=== PATIENT | female | born 1980 | race Caucasian/White ===

== ENCOUNTER 2016-09-10 15:10 | Emergency (ER) | payer SELFPAY ==
[~2016-09-10] VITALS: Ht 157.5 cm; Wt 149.7 kg
[2016-09-10 15:17] VITALS: BP 200/90
[2016-09-10] MEDS ORDERED: magic mouthwash PO (15:34)
[2016-09-10] MEDS ORDERED: CLIN300C8 PO (15:34)
--- NOTE | 2016-09-10 15:34 | PHYS DOC ---
Adult General Chief Complaint Chief Complaint: DENTAL PROBLEM HPI HPI Patient is a 35 year old female presents to the emergency department with oral pain. Patient reports Wednesday she began to have some burning to the area of the soft palate in the mouth. She states that she had a dentist appointment, routine cleaning, on Wednesday. She states that today she return to the dentist because the pain increased and seemed to be increasing the sores in her mouth. Patient states that her dentist was unsure of what it wasn't center to the emergency department. The patient has no difficulty with swallowing or phonation. She does not recall any changes in her daily routine or diet. The patient does report that 2 days prior to the onset of the sores in her mouth she had purchased a new toothbrush. She reports that the sores are now on the mucous membranes and the inside of her lips. Review of Systems Review of Systems Constitutional: Denies fever or chills [] Eyes: Denies change in visual acuity, redness, or eye pain [] HENT: Denies nasal congestion or sore throat, mouth pain [] Respiratory: Denies cough or shortness of breath [] Cardiovascular: No additional information not addressed in HPI [] GI: Denies abdominal pain, nausea, vomiting, bloody stools or diarrhea [] : Denies dysuria or hematuria [] Musculoskeletal: Denies back pain or joint pain [] Integument: Denies rash or skin lesions [] Neurologic: Denies headache, focal weakness or sensory changes [] Endocrine: Denies polyuria or polydipsia [] Physical Exam Physical Exam Constitutional: Well developed, well nourished, no acute distress, non-toxic appearance. [] HENT: Normocephalic, atraumatic, bilateral external ears normal, oropharynx with erythema on the right buccal mucosa, left buccal mucosa with erythematous base vesicular lesions. Soft palate erythematous with erythematous base vesicular lesions. Mucosal aspect of the upper and lower lip erythematous with sloughing vesicular lesions. Neck: Normal range of motion, no tenderness, supple, anterior cervical lymphadenopathy Cardiovascular:Heart rate regular rhythm, no murmur [] Lungs & Thorax: Bilateral breath sounds clear to auscultation [] Skin: Warm, dry, no erythema, no rash. [] Back: No tenderness, no CVA tenderness. [] Extremities: No tenderness, no cyanosis, no clubbing, ROM intact, no edema. [] EKG EKG [] Radiology/Procedures Radiology/Procedures [] Course & Med Decision Making Course & Med Decision Making Pertinent Labs and Imaging studies reviewed. (See chart for details) [] Dragon Disclaimer Dragon Disclaimer This electronic medical record was generated, in whole or in part, using a voice recognition dictation system. Departure Departure Impression: Primary Impression: Stomatitis and mucositis Disposition: HOME, SELF-CARE Condition: STABLE Patient Instructions: Stomatitis Additional Instructions: Magic mouthwash swish and spit 1 teaspoon every 2 hours as needed for comfort. Salt water swish and spit after meals and before bed. Follow-up with your dentist in 2-3 days. Scripts [magic mouthwash] No Conflict Check 5 ML PO gargle and spit Y for mouth pain, #120 ML Prov: ZHAO ARAUZ APRN 09/10/16 Clindamycin Hcl (CLINDAMYCIN HCL) 300 Mg Capsule 1 CAP PO TID, #21 CAP Prov: ZHAO ARAUZ APRN 09/10/16 ZHAO ARAUZ APRN Sep 10, 2016 15:34
== END 2016-09-10 15:45 | disposition home or self-care (01) ==
LOC: ER 15:10
DX: K12.1 Other forms of stomatitis (principal); K12.30 Oral mucositis (ulcerative), unspecified
CPT/HCPCS: 99283

== ENCOUNTER 2017-04-30 19:16 | Emergency (ER) | payer SELFPAY ==
[2017-04-30 20:02] LABS: URINE HCG POC HCG NEGATIVE (Negative)
[2017-04-30 20:12] LABS: BILIRUBIN,URINE NEGATIVE (NEG); CLARITY,URINE CLOUDY; COLOR,URINE YELLOW; GLUCOSE,URINE NEGATIVE (NEG); NITRITE,URINE NEGATIVE (NEG); PROTEIN,URINE NEGATIVE (NEG-TRACE)
[2017-04-30] MEDS: cloNIDine HCL 0.1 MG TABLET PO (20:20)
[2017-04-30 20:26] LABS: BACTERIA,URINE MODERATE /HPF (0-FEW); RBC,URINE 0 /HPF (0-2); SQUAMOUS EPITHELIAL CELL,UR MOD /LPF; WBC,URINE OCC /HPF (0-4)
[2017-04-30 20:58] LABS: ADD MAN DIFF? NO
[2017-04-30 21:07] LABS: BASO # 0.1 x10^3/uL (0.0-0.2); BASO % 0 % (0-3); EOS # 0.2 x10^3/uL (0.0-0.7); EOS % 1 % (0-3); HEMATOCRIT 37.9 % (36.0-47.0); HEMOGLOBIN 12.9 g/dL (12.0-15.5); LYMPH # 5.9 x10^3/uL (1.0-4.8); LYMPH % 44 % (24-48); MEAN CORPUSCULAR HEMOGLOBIN 30 pg (25-35); MEAN CORPUSCULAR HGB CONC 34 g/dL (31-37); MEAN CORPUSCULAR VOLUME 88 fL (79-100); MONO # 0.6 x10^3/uL (0.0-1.1); MONO % 5 % (0-9); NEUT # 6.6 x10^3uL (1.8-7.7); NEUT % 49 % (31-73); PLATELET COUNT 198 x10^3/uL (140-400); RED BLOOD COUNT 4.31 x10^6/uL (3.50-5.40); RED CELL DISTRIBUTION WIDTH 13.4 % (11.5-14.5); WHITE BLOOD COUNT 13.4 x10^3/uL (4.0-11.0)
[2017-04-30 21:18] LABS: ANION GAP 6 (6-14); BLOOD UREA NITROGEN 17 mg/dL (7-20); BUN/CREATININE RATIO 19 (6-20); CALCIUM 8.4 mg/dL (8.5-10.1); CARBON DIOXIDE 29 mmol/L (21-32); CHLORIDE 105 mmol/L (98-107); CREATININE 0.9 mg/dL (0.6-1.0); GFR 70.1; GLUCOSE 110 mg/dL (70-99); POTASSIUM 3.5 mmol/L (3.5-5.1); SODIUM 140 mmol/L (136-145)
[2017-04-30 21:24] LABS: ALBUMIN 3.3 g/dL (3.4-5.0); ALK PHOS 56 U/L (46-116); ALT (SGPT) 20 U/L (14-59); AST (SGOT) 14 U/L (15-37); TOTAL BILIRUBIN 0.4 mg/dL (0.2-1.0); TOTAL PROTEIN 6.6 g/dL (6.4-8.2)
[2017-04-30 21:32] LABS: THYROID STIM HORMONE (TSH) 2.647 uIU/mL (0.358-3.74)
[2017-04-30 21:35] LABS: NEG OBC SER NEG; POS OBC SER POS; PREG TEST PT QUAL NEGATIVE (NEG)
== END 2017-04-30 22:07 | disposition home or self-care (01) ==
LOC: ER 19:16
DX: I10 Essential (primary) hypertension (principal); R00.2 Palpitations; Z88.5 Allergy status to narcotic agent; Z98.51 Tubal ligation status
CPT/HCPCS: 36415; 80053; 81001; 81025; 84443; 84703; 85025; 87086; 93005; 99285-25